=== PATIENT | male | born 1970 | race American Indian/Alaskan Native ===

== ENCOUNTER 2021-12-17 21:23 | Emergency (ER) | payer MEDICAID, MEDICARE ==
[2021-12-17 23:10] VITALS: BP 95/69; PULSE 100
== END 2021-12-17 23:36 | disposition home or self-care (01) ==
LOC: JP.ED 21:23
DX: T33.41XA Superficial frostbite of right arm, initial encounter (principal); T33.42XA Superficial frostbite of left arm, initial encounter; T69.9XXA Effect of reduced temperature, unspecified, initial encounter; Z88.5 Allergy status to narcotic agent; X31.XXXA Exposure to excessive natural cold, initial encounter
CPT/HCPCS: 36415; 80053; 82550; 83605; 83735; 85025; 86140; 99282; 99284

== ENCOUNTER 2025-08-26 07:46 | Emergency (ER) | payer MEDICARE ==
[2025-08-26 08:13] LABS: BASOPHILS ABSOLUTE AUTO 0.04 K/uL (0.00-0.10); BASOPHILS PERCENT AUTO 0.5 % (0.1-1.3); EOSINOPHILS ABSOLUTE AUTO 0.25 K/uL (0.00-0.40); EOSINOPHILS PERCENT AUTO 3.1 % (0.0-5.4); IMMATURE GRAN ABSOLUTE AUTO 0.04 K/uL (0.00-0.23); IMMATURE GRAN PERCENT AUTO 0.5 % (0.0-0.7); LYMPHOCYTES ABSOLUTE AUTO 1.39 K/uL (0.8-3.3); LYMPHOCYTES PERCENT AUTO 17.3 % (11.4-47.7); MONOCYTES ABSOLUTE AUTO 0.65 K/uL (0.20-0.90); MONOCYTES PERCENT AUTO 8.1 % (3.3-12.6); NEUTROPHILS ABSOLUTE AUTO 5.67 K/uL (1.0-7.6); NEUTROPHILS PERCENT AUTO 70.5 % (40.0-78.1); PLATELET COUNT,PLT 309 K/uL (130-375); RED BLOOD CELL COUNT 5.24 M/uL (4.14-5.76); WHITE BLOOD CELL COUNT,WBC 8.0 K/uL (3.2-11.0)
[2025-08-26 08:35] LABS: ALANINE AMINOTRANSFERASE,ALT 45 U/L (12-78); ASPARTATE AMNIOTRANSFERASE,AST 37 U/L (15-37); BILIRUBIN TOTAL 0.9 mg/dL (0.2-1.0); BLOOD UREA NITROGEN,BUN 10 mg/dL (7-18); CARBON DIOXIDE,CO2 29 mmol/L (21-32); CHLORIDE,CL 104 mmol/L (100-108); CREATININE 0.4 mg/dL (0.8-1.3); EST CRCL DRUG DOSING (CG) 205.53 mL/min; ESTIMATED GFR 130 mL/min (>60); GLUCOSE RANDOM 100 mg/dL (74-106); POTASSIUM,K 3.7 mmol/L (3.6-5.2); PROTEIN TOTAL,TP 7.2 g/dL (6.4-8.2); SODIUM,NA 140 mmol/L (140-148); TROPONIN I HIGH SENSITIVITY 10.5 pg/mL (<=60.3)
[2025-08-26 08:36] LABS: A/G RATIO 1.0 (1.2-2.2)
[2025-08-26 09:12] VITALS: BP 154/90; PULSE 69
[2025-08-26] MEDS: methylPREDNISolone Sodium Succinate 125 MG/2 ML SDV IVPUSH ONE (09:33)
== END 2025-08-26 09:43 ==
LOC: JP.ED 07:46
DX: R07.89 Other chest pain (principal); M25.552 Pain in left hip; F17.210 Nicotine dependence, cigarettes, uncomplicated; Z88.5 Allergy status to narcotic agent
CPT/HCPCS: 36415; 71046; 71046-26; 73502-26-LT; 73502-LT; 80053; 84484; 85025; 93005; 93010; 96374; 99283; 99285-25; J2919